=== PATIENT | female | born 1995 | race Caucasian/White ===

== ENCOUNTER 2019-04-17 08:32 | Inpatient (IN) ==
[2019-04-17] MEDS ORDERED: OXYTOCIN 30 UNITS/500 ML BAG IV PRN ×2 (09:14→09:17)
--- NOTE | 2019-04-17 09:32 | History & Physical Report ---
Date of Service April 17, 2019 Assessment & Plan (1) Carrier of group B Streptococcus: (2) Diet controlled gestational diabetes mellitus: (3) : Admit to L&D. IV access. EFM/toco. Will ambulate in halls. Suspect early labor, and given patient's gestation and GBS+ status will admit now rather than wait. Undecided about epidural. For GBS+, Penicillin ordered. For GDMA1, will check blood sugars Q 2 h If ctx do not increase to labor pattern, will likely need pitocin to augment labor. Do not suspect ROM, given negative exam. The equivocal nitrizine strip is likely from patient's report of having intercourse last night. (4) Obesity: History of Present Illness Chief Complaint: Contractions, leaking of fluid Primary Care Provider: NO PCP 23yo @ 40 09/28 presents with contractions and feeling of wetness. She reports + movement, no vaginal bleeding. complicated by GDMA1, obesity, GBS+. She had been checking blood sugars and reported them to be normal earlier in the , but now reports that she has not really been checking in the past few weeks. Allergies Allergy/AdvReac Type Severity Reaction Status Date / Time No Known Drug Allergies Allergy Unknown none Verified 04/17/19 08:52 pomegranate AdvReac Severe Nausea Verified 04/17/19 08:52 Home Medications Home Medications Medication Instructions Recorded Confirmed Type cyanocobalamin (vitamin B-12) 0 mcg PO QDL 09/07/18 04/17/19 History [Vitamin B-12] PNV cmb#95-ferrous fumarate-FA 1 tab PO QDL 11/05/18 04/17/19 History [] sertraline 25 mg tablet 50 mg PO DAILY 11/28/18 04/17/19 History Patient History Medical History (Updated 03/24/19 @ 10:04 by Pollo Knight Jr, MD, FACOG) Breast discharge Hx of migraines No pertinent past medical history Obesity (Acute) Yeast infection Surgical History (Updated 11/24/18 @ 18:54 by Clementine Rose) S/P tonsillectomy Family History (Updated 11/24/18 @ 18:56 by Clementine Rose) Father Drinking problem Hypertension Dyslipidemia Grandmother (Paternal) Kidney stones Grandmother (Maternal) Multiple gestation Other Breast cancer Social History Preferred Language: Polish Communication Ability: Effective 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 Beliefs That Will Affect Care: None marital status: Single Current Living Situation: Significant Other Current Living Situation Comment: [id number] Other Information That Helps Us Care for You: No Feels Safe at Home: Yes Safety Concerns: Feels Safe At This Time Smoking Status: Current some day smoker Tobacco Type: cigarettes ; Cigarettes Per Day: 2 ; Do You Dip or Chew Tobacco: No ; Second Hand Exposure: Yes ; Tobacco Cessation Education Requested by Patient: No Hx Alcohol Use: Yes Alcohol type: wine Hx Substance Use: No Review of Systems All systems reviewed & are unremarkable except as noted in HPI & below Physical Exam Physical Exam: FHT Cat 1 [place] Q 5 min SVE 4/80/-2 Sterile spec: mucus-like cervical discharge, negative ferning, negative pooling, negative Valsalva, equivocal nitrizine. Constitutional: WD/WN, vitals as above Respiratory: normal respiratory effort, lungs clear to auscultation no respiratory distress Cardiovascular: Rate/Rhythm: regular rate and regular rhythm Gastrointestinal (Abdomen): Inspection/Auscultation: abdomen normal to inspection Percussion/Palpation: abdomen soft; abdomen nontender Gravid. No s/s chorio or abruption. Skin: no rashes, warm and dry Psychiatric: A+Ox3, euthymic affect Results & Data Vital Signs (Past 12 Hours) Vital Signs Temp Pulse Resp BP 04/17/19 08:43 36.9 C 118 H 20 135/82
[2019-04-17 09:35] LABS: Hematocrit (blood only) 38.1 % (37-47); Hemoglobin 12.5 g/dL (12.0-16.0); Mean Corpuscular Volume 85.2 fL (80-100); Mean Platelet Volume 9.9 fL (7.4-10.4); Platelet Count 203 K/uL (130-400); RDW Standard Deviation 46.3 fL (36.4-46.3); Red Blood Count 4.47 M/uL (4.2-5.4); White Blood Count 9.11 K/uL (4.8-10.8)
[2019-04-17 09:39] LABS: Mean Corpuscular Hgb Conc 32.8 g/dL (32-36)
[2019-04-17] MEDS: LACTATED RINGER'S 1,000 ML IV PRN ×2 (09:43→21:59)
[2019-04-17] MEDS ORDERED: PENICILLIN G POTASSIUM 6 MU in DEXTROSE 5% 250 ML IV ONE (09:45)
[2019-04-17 09:52] LABS: Alanine Aminotransferase 18 U/L (12-78); Albumin Level 2.6 gm/dl (3.4-5.0); Aspartate Aminotransferase 19 U/L (15-37); BUN Creatinine Ratio 15.5 (10-20); Blood Urea Nitrogen 9 mg/dl (7-18); Calcium 9.4 mg/dl (8.5-10.1); Carbon Dioxide 25 mmol/L (21-32); Chloride 107 mmol/L (98-107); Creatinine Clr Calc Pharmacy 175.5 ml/min; Est GFR (African American) > 150.0; Est GFR (Non-African American) 131.4; Glucose 110 mg/dl (70-99); Potassium 3.8 mmol/L (3.5-5.1); Sodium 138 mmol/L (136-145)
[2019-04-17 09:55] LABS: Albumin Globulin Ratio 0.6 (0.9-2); Alkaline Phosphatase 235 U/L (45-117); Bilirubin,Total 0.3 mg/dl (0.2-1); Globulin 4.4 gm/dl (2.5-4.0)
--- NOTE | 2019-04-17 12:20 | Labor Progress Brief Note ---
Date of Service April 17, 2019 Subjective Hip pain. Has ambulated. FHT Cat 1 [place] occasional ctx Discussed with patient that I recommend that she begin pitocin to improve contraction pattern. She is agreeable. SVE /-2 She would like to use IV pain medication - stadol ordered. She is also considering epidural. Results & Data Vital Signs (Past 12 Hours) Vital Signs Temp Pulse Resp BP 04/17/19 10:48 112 H 142/90 H 04/17/19 10:47 106 H 142/98 H 04/17/19 09:49 104 H 142/88 H 04/17/19 08:56 36.9 C 118 H 20 135/82 04/17/19 08:43 36.9 C 118 H 20 135/82
[2019-04-17] MEDS: BUTORPHANOL TARTRATE 1 MG/ML VIAL IV PRN (12:38)
[2019-04-17] MEDS: ACETAMINOPHEN 500 MG TAB PO PRN (13:53)
[2019-04-17] MEDS: PENICILLIN G POTASSIUM 3 MU in DEXTROSE 5% 100 ML IV PRN ×3 (13:59→21:55)
[2019-04-17] MEDS ORDERED: fentaNYL citrate 100 MCG/2 ML VIAL ONE ×2 (14:37→23:57)
[2019-04-17] MEDS ORDERED: ePHEDrine sulfate 50 MG/ML AMP ONE (14:38)
[2019-04-17] MEDS ORDERED: fentaNYL 2MCG/ML ROPIV 1.25MG/ML 100 ML BAG EPI ONE (14:38)
[2019-04-17] MEDS ORDERED: BUPIVACAINE 0.25% 30 ML VIAL ONE ×2 (14:38→23:57)
--- NOTE | 2019-04-17 15:24 | Anesthesiology Consultation ---
Date of Service April 17, 2019 Assessment & Plan ASA ASA2 Proposed Anesthesia Anesthesia Type: Labor Epidural Risk / Benefits Reviewed With: PT / POA / Parent / Guardian, Accepts Plan and Informed Consent Obtained History Height/Weight Height: 5 ft 1 in Weight: 106.141 kg Allergies Allergy/AdvReac Type Severity Reaction Status Date / Time No Known Drug Allergies Allergy Unknown none Verified 04/17/19 08:52 pomegranate AdvReac Severe Nausea Verified 04/17/19 08:52 Medications Home Medications Medication Instructions Recorded Confirmed Last Taken cyanocobalamin (vitamin B-12) 0 mcg PO QDL 09/07/18 04/17/19 04/17/19 06:30 [Vitamin B-12] PNV cmb#95-ferrous fumarate-FA 1 tab PO QDL 11/05/18 04/17/19 04/17/19 06:30 [] sertraline 25 mg tablet 50 mg PO DAILY 11/28/18 04/17/19 04/17/19 06:30 Active Medications Generic Name Dose Route Start Last Admin Trade Name Juanq PRN Reason Stop Dose Admin Acetaminophen 1,000 mg 04/17/19 13:39 04/17/19 13:53 Tylenol PO 05/17/19 13:38 1,000 mg Q6H PRN Administration Pain Butorphanol Tartrate 1 mg 04/17/19 12:18 04/17/19 12:38 Stadol IV 05/17/19 12:17 1 mg ONCE PRN Administration Pain Lactated Ringer's 1,000 mls @ 125 mls/hr 04/17/19 09:14 04/17/19 14:50 Lr IV 04/19/19 09:13 125 mls/hr .Q8H PRN Infusion L&D Protocol Protocol Penicillin G Potassium 3 mu/ 106 mls @ 100 mls/hr 04/17/19 09:14 04/17/19 13:59 Dextrose IV 04/27/19 09:13 100 mls/hr Q4H PRN Administration Give until delivery Oxytocin 30 units in 500 mls @ 5 mls/hr 04/17/19 09:17 04/17/19 14:50 Pitocin IV 04/19/19 09:16 0.3 units/hr .Q24H PRN 5 mls/hr Labor Induction/Augmentation Titration Protocol 0.3 UNITS/HR Past Medical History Medical History Breast discharge Hx of migraines No pertinent past medical history Obesity (Acute) Yeast infection Exercise / Class Metabolic Activity II 4-5 Yardwork/Stairs/Walk up hill Past Family History Family History Father Drinking problem Hypertension Dyslipidemia Grandmother (Paternal) Kidney stones Grandmother (Maternal) Multiple gestation Other Breast cancer Past Surgical History Surgical History S/P tonsillectomy Past Anesthesia History No Hx of Anesthesia Complications and No Family Hx of Anesthesia Complications History of PONV No Hx of PONV and No Hx of Motion Sickness Social History Smoking Status: Current some day smoker tobacco type: cigarettes Smoking cigarettes per day: 2 Do You Dip or Chew Tobacco: No Hx Alcohol Use: Yes Alcohol type: wine Alcohol Intake Frequency Comment: had few drinks when she was early Hx Substance Use: No Review of Systems denies fever/cough/ colds/ chest pain/ SOB/ SAMIA Constitutional: no fever and no chills Respiratory: no cough and no dyspnea denies SAMIA Cardiovascular: no chest pain and no dyspnea on exertion Physical Exam Vital Signs Last Vital Signs Temp 36.8 C 04/17/19 15:00 Pulse 95 H 04/17/19 15:45 Resp 16 04/17/19 15:00 BP 120/72 04/17/19 15:45 Pulse Ox 98 04/17/19 15:45 ENMT Mouth: no TMJ abnormality and no dentition abnormality Thyromental Distance: > or= 3.5 Finger Breadths Mallampati Class: II Neck neck extension not limited Respiratory normal respiratory effort; no respiratory distress Auscultation: lungs clear to auscultation bilaterally Cardiovascular Rate/Rhythm: regular rate and regular rhythm Neurologic moves all extremities Psychiatric Orientation: alert and oriented x 3 Testing Laboratory Results 04/17/19 09:21 04/17/19 09:21 04/17/19 04/17/19 04/17/19 15:02 13:37 11:38 POC Glucose 99 90 98
--- NOTE | 2019-04-17 15:34 | Labor Progress Brief Note ---
Date of Service April 17, 2019 Subjective Requesting epidural. FHT Cat 1, [place] Q 2-3 min. Results & Data Vital Signs (Past 12 Hours) Vital Signs Temp Pulse Resp BP Pulse Ox 04/17/19 15:27 100 H 140/89 04/17/19 15:25 95 H 98 04/17/19 15:20 105 H 100 04/17/19 15:15 95 H 98 04/17/19 15:10 95 H 98 04/17/19 15:05 94 H 95 04/17/19 15:00 36.8 C 16 04/17/19 14:26 106 H 139/87 04/17/19 13:36 36.7 C 104 H 20 139/83 04/17/19 12:51 106 H 121/75 04/17/19 12:22 112 H 171/93 H 04/17/19 10:48 36.7 C 112 H 20 142/90 H 04/17/19 10:47 106 H 142/98 H 04/17/19 09:49 104 H 142/88 H 04/17/19 08:56 36.9 C 118 H 20 135/82 04/17/19 08:43 36.9 C 118 H 20 135/82
[2019-04-17] MEDS ORDERED: ONDANSETRON INJ 2 MG/ML 2 ML VIAL ONE (15:49)
[2019-04-17] MEDS ORDERED: DiphenhydrAMINE HCL 50 MG/ML VIAL IV PRN (15:50)
[2019-04-17] MEDS ORDERED: NALOXONE HCL 1 MG in SODIUM CHLORIDE 0.9% 1000ML 1,000 ML IV PRN (15:50)
[2019-04-17] MEDS ORDERED: ONDANSETRON INJ 2 MG/ML 2 ML VIAL IV PRN (15:50)
[2019-04-17] MEDS ORDERED: NALOXONE HCL 0.4 MG/1 ML VIAL/CARP IV PRN (15:50)
[2019-04-17] MEDS ORDERED: NALBUPHINE HCL INJ 10 MG/ML AMP IV PRN (15:50)
[2019-04-17] MEDS ORDERED: ePHEDrine sulfate 50 MG/ML AMP IV PRN (15:50)
--- NOTE | 2019-04-17 18:27 | Labor Progress Brief Note ---
Date of Service April 17, 2019 Subjective Comfortable with epidural. FHT Cat 1 [place] Q2 SVE 4-5/90/-2 with bulging membranes. AROM performed for clear blood-tinged fluid. Results & Data Vital Signs (Past 12 Hours) Vital Signs Temp Pulse Resp BP Pulse Ox 04/17/19 18:20 94 H 99 04/17/19 18:15 109 H 129/74 99 04/17/19 18:10 94 H 97 04/17/19 18:05 95 H 96 04/17/19 18:01 98 H 120/69 04/17/19 18:00 94 H 99 04/17/19 17:55 91 H 96 04/17/19 17:50 104 H 97 04/17/19 17:47 94 H 123/70 04/17/19 17:45 100 H 97 04/17/19 17:40 110 H 98 04/17/19 17:35 101 H 98 04/17/19 17:31 94 H 124/69 04/17/19 17:30 102 H 99 04/17/19 17:25 102 H 98 04/17/19 17:20 102 H 97 04/17/19 17:16 115 H 138/81 04/17/19 17:15 114 H 99 04/17/19 17:10 99 H 98 04/17/19 17:05 92 H 97 04/17/19 17:00 36.9 C 101 H 18 118/69 96 04/17/19 16:59 95 H 94 04/17/19 16:56 94 H 118/70 04/17/19 16:55 94 H 96 04/17/19 16:51 98 H 118/75 04/17/19 16:50 98 H 95 04/17/19 16:47 97 H 93 04/17/19 16:45 102 H 18 111/67 97 04/17/19 16:40 104 H 96 04/17/19 16:39 96 H 107/61 04/17/19 16:36 96 H 115/63 04/17/19 16:35 95 H 97 04/17/19 16:30 111 H 18 99 04/17/19 16:29 105 H 115/65 04/17/19 16:25 89 97 04/17/19 16:24 96 H 123/69 04/17/19 16:23 94 H 93 04/17/19 16:20 100 H 119/64 96 04/17/19 16:15 104 H 18 124/67 97 04/17/19 16:10 99 H 97 04/17/19 16:09 96 H 115/55 L 04/17/19 16:05 114 H 96 04/17/19 16:04 93 H 117/59 L 04/17/19 16:00 104 H 20 98 04/17/19 15:59 96 H 118/55 L 04/17/19 15:57 106 H 121/58 L 04/17/19 15:55 107 H 117/56 L 98 04/17/19 15:53 97 H 123/58 L 04/17/19 15:51 94 H 124/59 L 04/17/19 15:50 97 H 98 04/17/19 15:49 122/65 04/17/19 15:47 90 120/59 L 04/17/19 15:45 95 H 16 120/72 98 04/17/19 15:40 114 H 99 04/17/19 15:35 105 H 99 04/17/19 15:30 97 H 98 04/17/19 15:27 100 H 140/89 04/17/19 15:25 95 H 98 04/17/19 15:20 105 H 100 04/17/19 15:15 95 H 98 04/17/19 15:10 95 H 98 04/17/19 15:05 94 H 95 04/17/19 15:00 36.8 C 16 04/17/19 14:26 106 H 139/87 04/17/19 13:36 36.7 C 104 H 20 139/83 04/17/19 12:51 106 H 121/75 04/17/19 12:22 112 H 171/93 H 04/17/19 10:48 36.7 C 112 H 20 142/90 H 04/17/19 10:47 106 H 142/98 H 04/17/19 09:49 104 H 142/88 H 04/17/19 08:56 36.9 C 118 H 20 135/82 04/17/19 08:43 36.9 C 118 H 20 135/82
--- NOTE | 2019-04-17 20:48 | Labor Progress Brief Note ---
Date of Service April 17, 2019 Subjective Feeling ctx, but still mostly comfortable with epidural. FHT Cat 1, [place] Q 2 SVE 6/90/-2. IUPC inserted. Results & Data Vital Signs (Past 12 Hours) Vital Signs Temp Pulse Resp BP Pulse Ox 04/17/19 20:46 105 H 129/75 94 04/17/19 20:45 111 H 95 04/17/19 20:40 105 H 98 04/17/19 20:35 104 H 96 04/17/19 20:31 96 H 142/67 H 04/17/19 20:30 106 H 96 04/17/19 20:29 96 H 94 04/17/19 20:25 98 H 93 04/17/19 20:23 96 H 94 04/17/19 20:20 96 H 93 04/17/19 20:18 95 H 94 04/17/19 20:16 98 H 130/70 04/17/19 20:15 93 H 95 04/17/19 20:13 97 H 93 04/17/19 20:10 93 H 93 04/17/19 20:06 96 H 94 04/17/19 20:05 96 H 95 04/17/19 20:01 96 H 128/62 04/17/19 20:00 96 H 18 94 04/17/19 19:59 94 H 94 04/17/19 19:55 95 H 94 04/17/19 19:53 96 H 94 04/17/19 19:50 95 H 93 04/17/19 19:47 92 H 134/62 94 04/17/19 19:45 89 94 04/17/19 19:40 98 H 94 04/17/19 19:39 92 H 94 04/17/19 19:35 98 H 95 04/17/19 19:33 96 H 94 04/17/19 19:31 93 H 134/72 04/17/19 19:30 93 H 18 95 04/17/19 19:25 97 H 97 04/17/19 19:20 98 H 97 04/17/19 19:16 97 H 142/71 H 04/17/19 19:15 101 H 98 04/17/19 19:10 107 H 98 04/17/19 19:05 36.8 C 108 H 98 04/17/19 19:01 100 H 133/81 04/17/19 19:00 101 H 18 98 04/17/19 18:55 106 H 98 04/17/19 18:50 105 H 98 04/17/19 18:46 96 H 128/74 04/17/19 18:45 99 H 97 04/17/19 18:40 98 H 98 04/17/19 18:35 101 H 98 04/17/19 18:32 103 H 133/85 04/17/19 18:30 97 H 20 98 04/17/19 18:25 100 H 97 04/17/19 18:20 94 H 99 04/17/19 18:15 109 H 129/74 99 04/17/19 18:10 94 H 97 04/17/19 18:05 95 H 96 04/17/19 18:01 98 H 120/69 04/17/19 18:00 94 H 18 99 04/17/19 17:55 91 H 96 04/17/19 17:50 104 H 97 04/17/19 17:47 94 H 123/70 04/17/19 17:45 100 H 97 04/17/19 17:40 110 H 98 04/17/19 17:35 101 H 98 04/17/19 17:31 94 H 124/69 04/17/19 17:30 102 H 20 99 04/17/19 17:25 102 H 98 04/17/19 17:20 102 H 97 04/17/19 17:16 115 H 138/81 04/17/19 17:15 114 H 18 99 04/17/19 17:10 99 H 98 04/17/19 17:05 92 H 97 04/17/19 17:00 36.9 C 101 H 18 118/69 96 04/17/19 16:59 95 H 94 04/17/19 16:56 94 H 118/70 04/17/19 16:55 94 H 96 04/17/19 16:51 98 H 118/75 04/17/19 16:50 98 H 95 04/17/19 16:47 97 H 93 04/17/19 16:45 102 H 18 111/67 97 04/17/19 16:40 104 H 96 04/17/19 16:39 96 H 107/61 04/17/19 16:36 96 H 115/63 04/17/19 16:35 95 H 97 04/17/19 16:30 111 H 18 99 04/17/19 16:29 105 H 115/65 04/17/19 16:25 89 97 04/17/19 16:24 96 H 123/69 04/17/19 16:23 94 H 93 04/17/19 16:20 100 H 119/64 96 04/17/19 16:15 104 H 18 124/67 97 04/17/19 16:10 99 H 97 04/17/19 16:09 96 H 115/55 L 04/17/19 16:05 114 H 96 04/17/19 16:04 93 H 117/59 L 04/17/19 16:00 104 H 20 98 04/17/19 15:59 96 H 118/55 L 04/17/19 15:57 106 H 121/58 L 04/17/19 15:55 107 H 117/56 L 98 04/17/19 15:53 97 H 123/58 L 04/17/19 15:51 94 H 124/59 L 04/17/19 15:50 97 H 98 04/17/19 15:49 122/65 04/17/19 15:47 90 120/59 L 04/17/19 15:45 95 H 16 120/72 98 04/17/19 15:40 114 H 99 04/17/19 15:35 105 H 99 04/17/19 15:30 97 H 98 04/17/19 15:27 100 H 140/89 04/17/19 15:25 95 H 98 04/17/19 15:20 105 H 100 04/17/19 15:15 95 H 98 04/17/19 15:10 95 H 98 04/17/19 15:05 94 H 95 04/17/19 15:00 36.8 C 16 04/17/19 14:26 106 H 139/87 04/17/19 13:36 36.7 C 104 H 20 139/83 04/17/19 12:51 106 H 121/75 04/17/19 12:22 112 H 171/93 H 04/17/19 10:48 36.7 C 112 H 20 142/90 H 04/17/19 10:47 106 H 142/98 H 04/17/19 09:49 104 H 142/88 H 04/17/19 08:56 36.9 C 118 H 20 135/82
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
[2019-04-17] MEDS: fentaNYL 2MCG/ML ROPIV 1.25MG/ML 100 ML BAG EPI PRN (21:56)
--- NOTE | 2019-04-17 22:25 | Labor Progress Brief Note ---
Date of Service April 17, 2019 Subjective Feeling more discomfort in her back. FHT 130s-140s mod tami. +accels. Deceleration lasting 3 minutes to 120s. Returned to baseline with accels. Cervix exam (moved down in station, not dilating more yet). IUPC in place, [place] with Q2, adequate [place] units. Results & Data Vital Signs (Past 12 Hours) Vital Signs Temp Pulse Resp BP Pulse Ox 04/17/19 22:20 102 H 96 04/17/19 22:16 107 H 141/103 H 04/17/19 22:15 106 H 97 04/17/19 22:10 98 H 96 04/17/19 22:05 111 H 97 04/17/19 22:02 97 H 147/67 H 04/17/19 22:00 96 H 95 04/17/19 21:55 108 H 95 04/17/19 21:53 99 H 94 04/17/19 21:51 95 H 138/77 04/17/19 21:50 96 H 95 04/17/19 21:47 111 H 94 04/17/19 21:45 94 H 95 04/17/19 21:41 98 H 94 04/17/19 21:40 99 H 95 04/17/19 21:35 101 H 97 04/17/19 21:34 105 H 93 04/17/19 21:31 101 H 129/80 04/17/19 21:30 116 H 18 97 04/17/19 21:25 106 H 96 04/17/19 21:20 119 H 98 04/17/19 21:17 118 H 143/83 H 04/17/19 21:15 114 H 97 04/17/19 21:10 102 H 96 04/17/19 21:05 107 H 95 04/17/19 21:01 100 H 134/68 04/17/19 21:00 36.9 C 104 H 18 95 04/17/19 20:55 113 H 96 04/17/19 20:54 111 H 93 04/17/19 20:50 96 H 96 04/17/19 20:46 105 H 129/75 94 04/17/19 20:45 111 H 95 04/17/19 20:40 105 H 98 04/17/19 20:35 104 H 96 04/17/19 20:31 96 H 142/67 H 04/17/19 20:30 106 H 16 96 04/17/19 20:29 96 H 94 04/17/19 20:25 98 H 93 04/17/19 20:23 96 H 94 04/17/19 20:20 96 H 93 04/17/19 20:18 95 H 94 04/17/19 20:16 98 H 130/70 04/17/19 20:15 93 H 95 04/17/19 20:13 97 H 93 04/17/19 20:10 93 H 93 04/17/19 20:06 96 H 94 04/17/19 20:05 96 H 95 04/17/19 20:01 96 H 128/62 04/17/19 20:00 96 H 18 94 04/17/19 19:59 94 H 94 04/17/19 19:55 95 H 94 04/17/19 19:53 96 H 94 04/17/19 19:50 95 H 93 04/17/19 19:47 92 H 134/62 94 04/17/19 19:45 89 94 04/17/19 19:40 98 H 94 04/17/19 19:39 92 H 94 04/17/19 19:35 98 H 95 04/17/19 19:33 96 H 94 04/17/19 19:31 93 H 134/72 04/17/19 19:30 93 H 18 95 04/17/19 19:25 97 H 97 04/17/19 19:20 98 H 97 04/17/19 19:16 97 H 142/71 H 04/17/19 19:15 101 H 98 04/17/19 19:10 107 H 98 04/17/19 19:05 36.8 C 108 H 98 04/17/19 19:01 100 H 133/81 04/17/19 19:00 101 H 18 98 04/17/19 18:55 106 H 98 04/17/19 18:50 105 H 98 04/17/19 18:46 96 H 128/74 04/17/19 18:45 99 H 97 04/17/19 18:40 98 H 98 04/17/19 18:35 101 H 98 04/17/19 18:32 103 H 133/85 04/17/19 18:30 97 H 20 98 04/17/19 18:25 100 H 97 04/17/19 18:20 94 H 99 04/17/19 18:15 109 H 129/74 99 04/17/19 18:10 94 H 97 04/17/19 18:05 95 H 96 04/17/19 18:01 98 H 120/69 04/17/19 18:00 94 H 18 99 04/17/19 17:55 91 H 96 04/17/19 17:50 104 H 97 04/17/19 17:47 94 H 123/70 04/17/19 17:45 100 H 97 04/17/19 17:40 110 H 98 04/17/19 17:35 101 H 98 04/17/19 17:31 94 H 124/69 04/17/19 17:30 102 H 20 99 04/17/19 17:25 102 H 98 04/17/19 17:20 102 H 97 04/17/19 17:16 115 H 138/81 04/17/19 17:15 114 H 18 99 04/17/19 17:10 99 H 98 04/17/19 17:05 92 H 97 04/17/19 17:00 36.9 C 101 H 18 118/69 96 04/17/19 16:59 95 H 94 04/17/19 16:56 94 H 118/70 04/17/19 16:55 94 H 96 04/17/19 16:51 98 H 118/75 04/17/19 16:50 98 H 95 04/17/19 16:47 97 H 93 04/17/19 16:45 102 H 18 111/67 97 04/17/19 16:40 104 H 96 04/17/19 16:39 96 H 107/61 04/17/19 16:36 96 H 115/63 04/17/19 16:35 95 H 97 04/17/19 16:30 111 H 18 99 04/17/19 16:29 105 H 115/65 04/17/19 16:25 89 97 04/17/19 16:24 96 H 123/69 04/17/19 16:23 94 H 93 04/17/19 16:20 100 H 119/64 96 04/17/19 16:15 104 H 18 124/67 97 04/17/19 16:10 99 H 97 04/17/19 16:09 96 H 115/55 L 04/17/19 16:05 114 H 96 04/17/19 16:04 93 H 117/59 L 04/17/19 16:00 104 H 20 98 04/17/19 15:59 96 H 118/55 L 04/17/19 15:57 106 H 121/58 L 04/17/19 15:55 107 H 117/56 L 98 04/17/19 15:53 97 H 123/58 L 04/17/19 15:51 94 H 124/59 L 04/17/19 15:50 97 H 98 04/17/19 15:49 122/65 04/17/19 15:47 90 120/59 L 04/17/19 15:45 95 H 16 120/72 98 04/17/19 15:40 114 H 99 04/17/19 15:35 105 H 99 04/17/19 15:30 97 H 98 04/17/19 15:27 100 H 140/89 04/17/19 15:25 95 H 98 04/17/19 15:20 105 H 100 04/17/19 15:15 95 H 98 04/17/19 15:10 95 H 98 04/17/19 15:05 94 H 95 04/17/19 15:00 36.8 C 16 04/17/19 14:26 106 H 139/87 04/17/19 13:36 36.7 C 104 H 20 139/83 04/17/19 12:51 106 H 121/75 04/17/19 12:22 112 H 171/93 H 04/17/19 10:48 36.7 C 112 H 20 142/90 H 04/17/19 10:47 106 H 142/98 H
[2019-04-17] MEDS ORDERED: Nursing to Pharmacy Communication ONE (23:12)
--- NOTE | 2019-04-18 00:19 | Anesthesiology Progress Note ---
Date of Service April 18, 2019 Subjective The patient stated having increasing labor pains. The epidural catheter was jodi lused with 50mcg fentanyl and 3mL of 0.25% bupivacaine. The patient stated having improved labor pains after the bolus. The patient and fetus were stable throughout. Physical Exam Vital Signs: Last Vital Signs Temp 98.6 F 04/17/19 23:05 Pulse 109 H 04/18/19 00:13 Resp 20 04/17/19 23:30 BP 154/87 H 04/18/19 00:13 Pulse Ox 96 04/18/19 00:10 Results & Data Medications Administered Acetaminophen (Tylenol) 1,000 mg PO Q6H PRN PRN Reason: Pain Stop: 05/17/19 13:38 Last Admin: 04/17/19 13:53 Dose: 1,000 mg Documented by: [id number] Butorphanol Tartrate (Stadol) 1 mg IV ONCE PRN PRN Reason: Pain Stop: 05/17/19 12:17 Last Admin: 04/17/19 12:38 Dose: 1 mg Documented by: [id number] Cosigned by: [id number] Lactated Ringer's (Lr) 1,000 mls @ 125 mls/hr IV .Q8H PRN; Protocol PRN Reason: L&D Protocol Stop: 04/19/19 09:13 Last Admin: 04/17/19 21:59 Dose: 125 mls/hr Documented by: [id number] Infusion: 04/17/19 19:20 Dose: 125 mls/hr Documented by: [id number] Infusion: 04/17/19 14:50 Dose: 125 mls/hr Documented by: [id number] Infusion: 04/17/19 12:34 Dose: 125 mls/hr Documented by: [id number] Infusion: 04/17/19 10:58 Dose: 0 mls/hr Documented by: [id number] Admin: 04/17/19 09:43 Dose: 125 mls/hr Documented by: [id number] Penicillin G Potassium 3 mu/ (Dextrose) 106 mls @ 100 mls/hr IV Q4H PRN PRN Reason: Give until delivery Stop: 04/27/19 09:13 Last Admin: 04/17/19 21:55 Dose: 100 mls/hr Documented by: [id number] Infusion: 04/17/19 19:05 Dose: 0 mls/hr Documented by: [id number] Admin: 12/25/19 17:57 Dose: 100 mls/hr Documented by: [id number] Infusion: 04/17/19 15:02 Dose: 0 mls/hr Documented by: [id number] Admin: 04/17/19 13:59 Dose: 100 mls/hr Documented by: [id number] Oxytocin (Pitocin) 30 units in 500 mls @ 11 mls/hr IV .Q24H PRN; Protocol PRN Reason: Labor Induction/Augmentation Stop: 04/19/19 09:16 Last Titration: 04/17/19 18:10 Dose: 0.66 units/hr, 11 mls/hr Documented by: [id number] Titration: 04/17/19 17:35 Dose: 0.54 units/hr, 9 mls/hr Documented by: [id number] Titration: 04/17/19 17:06 Dose: 0.42 units/hr, 7 mls/hr Documented by: [id number] Titration: 04/17/19 15:00 Dose: 0.3 units/hr, 5 mls/hr Documented by: [id number] Titration: 04/17/19 14:50 Dose: 0.3 units/hr, 5 mls/hr Documented by: [id number] Titration: 04/17/19 14:30 Dose: 0.3 units/hr, 5 mls/hr Documented by: [id number] Titration: 04/17/19 13:25 Dose: 0.18 units/hr, 3 mls/hr Documented by: [id number] Admin: 04/17/19 12:36 Dose: 0.06 units/hr, 1 mls/hr Documented by: [id number] Cosigned by: [id number] Ropivacaine (Epidural (L&D)) 100 ml EPI PRN PRN; Protocol PRN Reason: Pain R/T Labor Stop: 04/18/19 15:49 Last Admin: 04/17/19 21:56 Dose: 100 ml Documented by: [id number] Cosigned by: [id number]
[2019-04-18] MEDS ORDERED: ePHEDrine sulfate 50 MG/ML AMP ONE (00:44)
[2019-04-18] MEDS ORDERED: fentaNYL citrate 100 MCG/2 ML VIAL ONE ×2 (00:44→06:26)
[2019-04-18] MEDS ORDERED: fentaNYL 2MCG/ML ROPIV 1.25MG/ML 100 ML BAG EPI ONE (00:45)
[2019-04-18] MEDS ORDERED: BUPIVACAINE 0.25% 30 ML VIAL ONE (00:45)
[2019-04-18] MEDS: BUTORPHANOL TARTRATE 1 MG/ML VIAL IV PRN (01:30)
[2019-04-18] MEDS: PENICILLIN G POTASSIUM 3 MU in DEXTROSE 5% 100 ML IV PRN (01:37)
[2019-04-18] MEDS ORDERED: DiphenhydrAMINE HCL 50 MG/ML VIAL IV STA (01:39)
--- NOTE | 2019-04-18 01:46 | Labor Progress Brief Note ---
Date of Service April 18, 2019 Subjective Patient is screaming in pain with contractions. FHT Cat 1 [place] Q 2-3 min SVE 7-8/90/0 Dr [place] anesthesia has re-dosed epidural. Will give stadol and benadryl in an attempt to help her with pain and anxiety. Results & Data Vital Signs (Past 12 Hours) Vital Signs Temp Pulse Resp BP Pulse Ox 04/18/19 01:37 129 H 138/88 04/18/19 01:35 125 H 141/88 H 96 04/18/19 01:33 122 H 142/94 H 04/18/19 01:31 131 H 154/86 H 04/18/19 01:30 134 H 97 04/18/19 01:29 139 H 153/89 H 04/18/19 01:27 133 H 157/107 H 04/18/19 01:25 140 H 175/119 H 93 04/18/19 01:20 135 H 88 L 04/18/19 01:15 118 H 95 04/18/19 01:13 132 H 84 L 04/18/19 01:10 122 H 153/96 H 96 04/18/19 01:08 112 H 160/94 H 04/18/19 01:05 122 H 96 04/18/19 01:00 116 H 96 04/18/19 00:56 127 H 149/79 H 04/18/19 00:55 132 H 95 04/18/19 00:51 136 H 83 L 04/18/19 00:50 129 H 93 04/18/19 00:45 127 H 93 04/18/19 00:44 129 H 89 L 04/18/19 00:40 116 H 145/85 H 91 04/18/19 00:35 127 H 95 04/18/19 00:31 127 H 85 L 04/18/19 00:30 36.8 C 108 H 20 93 04/18/19 00:27 106 H 203/107 H 04/18/19 00:25 115 H 94 04/18/19 00:21 109 H 200/117 H 04/18/19 00:20 108 H 95 04/18/19 00:15 111 H 167/88 H 94 04/18/19 00:13 109 H 154/87 H 04/18/19 00:11 107 H 158/93 H 04/18/19 00:10 109 H 96 04/18/19 00:09 125 H 158/94 H 04/18/19 00:07 122 H 165/96 H 04/18/19 00:05 118 H 163/93 H 95 04/18/19 00:03 108 H 155/93 H 04/18/19 00:01 110 H 147/105 H 04/18/19 00:00 109 H 20 94 04/17/19 23:55 111 H 94 04/17/19 23:53 103 H 87 L 04/17/19 23:50 103 H 93 04/17/19 23:46 114 H 146/87 H 04/17/19 23:45 111 H 96 04/17/19 23:40 111 H 97 04/17/19 23:35 110 H 96 04/17/19 23:31 116 H 138/88 04/17/19 23:30 118 H 20 97 04/17/19 23:25 110 H 96 04/17/19 23:20 113 H 97 04/17/19 23:17 99 H 153/72 H 04/17/19 23:15 100 H 94 04/17/19 23:10 112 H 95 04/17/19 23:05 37.0 C 103 H 20 94 04/17/19 23:01 98 H 144/86 H 04/17/19 23:00 99 H 94 04/17/19 22:55 108 H 96 04/17/19 22:50 107 H 96 04/17/19 22:46 102 H 139/81 04/17/19 22:45 102 H 95 04/17/19 22:40 102 H 96 04/17/19 22:35 111 H 96 04/17/19 22:31 96 H 141/80 H 04/17/19 22:30 109 H 18 95 04/17/19 22:25 115 H 95 04/17/19 22:20 102 H 96 04/17/19 22:16 107 H 141/103 H 04/17/19 22:15 106 H 97 04/17/19 22:10 98 H 96 04/17/19 22:05 111 H 97 04/17/19 22:02 97 H 147/67 H 04/17/19 22:01 18 04/17/19 22:00 96 H 95 12/25/19 21:55 108 H 95 04/17/19 21:53 99 H 94 04/17/19 21:51 95 H 138/77 04/17/19 21:50 96 H 95 04/17/19 21:47 111 H 94 04/17/19 21:45 94 H 95 04/17/19 21:41 98 H 94 04/17/19 21:40 99 H 95 04/17/19 21:35 101 H 97 04/17/19 21:34 105 H 93 04/17/19 21:31 101 H 129/80 04/17/19 21:30 116 H 18 97 04/17/19 21:25 106 H 96 04/17/19 21:20 119 H 98 04/17/19 21:17 118 H 143/83 H 04/17/19 21:15 114 H 97 04/17/19 21:10 102 H 96 04/17/19 21:05 107 H 95 04/17/19 21:01 100 H 134/68 04/17/19 21:00 36.9 C 104 H 18 95 04/17/19 20:55 113 H 96 04/17/19 20:54 111 H 93 04/17/19 20:50 96 H 96 04/17/19 20:46 105 H 129/75 94 04/17/19 20:45 111 H 95 04/17/19 20:40 105 H 98 04/17/19 20:35 104 H 96 04/17/19 20:31 96 H 142/67 H 04/17/19 20:30 106 H 16 96 04/17/19 20:29 96 H 94 04/17/19 20:25 98 H 93 04/17/19 20:23 96 H 94 04/17/19 20:20 96 H 93 04/17/19 20:18 95 H 94 04/17/19 20:16 98 H 130/70 04/17/19 20:15 93 H 95 04/17/19 20:13 97 H 93 04/17/19 20:10 93 H 93 04/17/19 20:06 96 H 94 04/17/19 20:05 96 H 95 04/17/19 20:01 96 H 128/62 04/17/19 20:00 96 H 18 94 04/17/19 19:59 94 H 94 12/25/19 19:55 95 H 94 04/17/19 19:53 96 H 94 04/17/19 19:50 95 H 93 04/17/19 19:47 92 H 134/62 94 04/17/19 19:45 89 94 04/17/19 19:40 98 H 94 04/17/19 19:39 92 H 94 04/17/19 19:35 98 H 95 04/17/19 19:33 96 H 94 04/17/19 19:31 93 H 134/72 04/17/19 19:30 93 H 18 95 04/17/19 19:25 97 H 97 04/17/19 19:20 98 H 97 04/17/19 19:16 97 H 142/71 H 04/17/19 19:15 101 H 98 04/17/19 19:10 107 H 98 04/17/19 19:05 36.8 C 108 H 98 04/17/19 19:01 100 H 133/81 04/17/19 19:00 101 H 18 98 04/17/19 18:55 106 H 98 04/17/19 18:50 105 H 98 04/17/19 18:46 96 H 128/74 04/17/19 18:45 99 H 97 04/17/19 18:40 98 H 98 04/17/19 18:35 101 H 98 04/17/19 18:32 103 H 133/85 04/17/19 18:30 97 H 20 98 04/17/19 18:25 100 H 97 04/17/19 18:20 94 H 99 04/17/19 18:15 109 H 129/74 99 04/17/19 18:10 94 H 97 04/17/19 18:05 95 H 96 04/17/19 18:01 98 H 120/69 04/17/19 18:00 94 H 18 99 04/17/19 17:55 91 H 96 04/17/19 17:50 104 H 97 04/17/19 17:47 94 H 123/70 04/17/19 17:45 100 H 97 04/17/19 17:40 110 H 98 04/17/19 17:35 101 H 98 04/17/19 17:31 94 H 124/69 04/17/19 17:30 102 H 20 99 04/17/19 17:25 102 H 98 04/17/19 17:20 102 H 97 04/17/19 17:16 115 H 138/81 04/17/19 17:15 114 H 18 99 04/17/19 17:10 99 H 98 04/17/19 17:05 92 H 97 04/17/19 17:00 36.9 C 101 H 18 118/69 96 04/17/19 16:59 95 H 94 04/17/19 16:56 94 H 118/70 04/17/19 16:55 94 H 96 04/17/19 16:51 98 H 118/75 04/17/19 16:50 98 H 95 04/17/19 16:47 97 H 93 04/17/19 16:45 102 H 18 111/67 97 04/17/19 16:40 104 H 96 04/17/19 16:39 96 H 107/61 04/17/19 16:36 96 H 115/63 04/17/19 16:35 95 H 97 04/17/19 16:30 111 H 18 99 04/17/19 16:29 105 H 115/65 04/17/19 16:25 89 97 04/17/19 16:24 96 H 123/69 04/17/19 16:23 94 H 93 04/17/19 16:20 100 H 119/64 96 04/17/19 16:15 104 H 18 124/67 97 04/17/19 16:10 99 H 97 04/17/19 16:09 96 H 115/55 L 04/17/19 16:05 114 H 96 04/17/19 16:04 93 H 117/59 L 04/17/19 16:00 104 H 20 98 04/17/19 15:59 96 H 118/55 L 04/17/19 15:57 106 H 121/58 L 04/17/19 15:55 107 H 117/56 L 98 04/17/19 15:53 97 H 123/58 L 04/17/19 15:51 94 H 124/59 L 04/17/19 15:50 97 H 98 04/17/19 15:49 122/65 04/17/19 15:47 90 120/59 L 04/17/19 15:45 95 H 16 120/72 98 04/17/19 15:40 114 H 99 04/17/19 15:35 105 H 99 04/17/19 15:30 97 H 98 04/17/19 15:27 100 H 140/89 04/17/19 15:25 95 H 98 04/17/19 15:20 105 H 100 04/17/19 15:15 95 H 98 04/17/19 15:10 95 H 98 04/17/19 15:05 94 H 95 04/17/19 15:00 36.8 C 16 04/17/19 14:26 106 H 139/87
--- NOTE | 2019-04-18 02:22 | Labor Progress Brief Note ---
Date of Service April 18, 2019 Subjective Patient continues to scream through contractions, stating she needs the pain to stop right now. Gave patient the option of section under general anesthesia, vs Dr [place] to try an intrathecal epidural. She would like to try intrathecal, as recovery from would be very difficult. She is aware this could result in spinal headache. Results & Data Vital Signs (Past 12 Hours) Vital Signs Temp Pulse Resp BP Pulse Ox 04/18/19 02:15 153 H 98 04/18/19 02:10 148 H 95 04/18/19 02:05 141 H 95 04/18/19 02:00 145 H 95 04/18/19 01:55 140 H 94 04/18/19 01:53 146 H 138/72 04/18/19 01:51 150 H 85 L 04/18/19 01:50 163 H 93 04/18/19 01:45 144 H 94 04/18/19 01:40 135 H 95 04/18/19 01:37 129 H 138/88 04/18/19 01:35 125 H 141/88 H 96 04/18/19 01:33 122 H 142/94 H 04/18/19 01:31 131 H 154/86 H 04/18/19 01:30 134 H 97 04/18/19 01:29 139 H 153/89 H 04/18/19 01:27 133 H 157/107 H 04/18/19 01:25 140 H 175/119 H 93 04/18/19 01:20 135 H 88 L 04/18/19 01:15 118 H 95 04/18/19 01:13 132 H 84 L 04/18/19 01:10 122 H 153/96 H 96 04/18/19 01:08 112 H 160/94 H 04/18/19 01:05 122 H 96 04/18/19 01:00 116 H 96 04/18/19 00:56 127 H 149/79 H 04/18/19 00:55 132 H 95 04/18/19 00:51 136 H 83 L 04/18/19 00:50 129 H 93 04/18/19 00:45 127 H 93 04/18/19 00:44 129 H 89 L 04/18/19 00:40 116 H 145/85 H 91 04/18/19 00:35 127 H 95 04/18/19 00:31 127 H 85 L 04/18/19 00:30 36.8 C 108 H 20 93 04/18/19 00:27 106 H 203/107 H 04/18/19 00:25 115 H 94 04/18/19 00:21 109 H 200/117 H 04/18/19 00:20 108 H 95 04/18/19 00:15 111 H 167/88 H 94 04/18/19 00:13 109 H 154/87 H 04/18/19 00:11 107 H 158/93 H 04/18/19 00:10 109 H 96 04/18/19 00:09 125 H 158/94 H 04/18/19 00:07 122 H 165/96 H 04/18/19 00:05 118 H 163/93 H 95 04/18/19 00:03 108 H 155/93 H 04/18/19 00:01 110 H 147/105 H 04/18/19 00:00 109 H 20 94 04/17/19 23:55 111 H 94 04/17/19 23:53 103 H 87 L 04/17/19 23:50 103 H 93 04/17/19 23:46 114 H 146/87 H 04/17/19 23:45 111 H 96 04/17/19 23:40 111 H 97 04/17/19 23:35 110 H 96 04/17/19 23:31 116 H 138/88 04/17/19 23:30 118 H 20 97 04/17/19 23:25 110 H 96 04/17/19 23:20 113 H 97 04/17/19 23:17 99 H 153/72 H 04/17/19 23:15 100 H 94 04/17/19 23:10 112 H 95 04/17/19 23:05 37.0 C 103 H 20 94 04/17/19 23:01 98 H 144/86 H 04/17/19 23:00 99 H 94 04/17/19 22:55 108 H 96 04/17/19 22:50 107 H 96 04/17/19 22:46 102 H 139/81 04/17/19 22:45 102 H 95 04/17/19 22:40 102 H 96 04/17/19 22:35 111 H 96 04/17/19 22:31 96 H 141/80 H 04/17/19 22:30 109 H 18 95 04/17/19 22:25 115 H 95 04/17/19 22:20 102 H 96 04/17/19 22:16 107 H 141/103 H 04/17/19 22:15 106 H 97 04/17/19 22:10 98 H 96 04/17/19 22:05 111 H 97 04/17/19 22:02 97 H 147/67 H 04/17/19 22:01 18 04/17/19 22:00 96 H 95 04/17/19 21:55 108 H 95 04/17/19 21:53 99 H 94 04/17/19 21:51 95 H 138/77 04/17/19 21:50 96 H 95 04/17/19 21:47 111 H 94 04/17/19 21:45 94 H 95 04/17/19 21:41 98 H 94 04/17/19 21:40 99 H 95 04/17/19 21:35 101 H 97 04/17/19 21:34 105 H 93 04/17/19 21:31 101 H 129/80 04/17/19 21:30 116 H 18 97 04/17/19 21:25 106 H 96 04/17/19 21:20 119 H 98 04/17/19 21:17 118 H 143/83 H 04/17/19 21:15 114 H 97 04/17/19 21:10 102 H 96 04/17/19 21:05 107 H 95 04/17/19 21:01 100 H 134/68 04/17/19 21:00 36.9 C 104 H 18 95 04/17/19 20:55 113 H 96 04/17/19 20:54 111 H 93 04/17/19 20:50 96 H 96 04/17/19 20:46 105 H 129/75 94 04/17/19 20:45 111 H 95 04/17/19 20:40 105 H 98 04/17/19 20:35 104 H 96 04/17/19 20:31 96 H 142/67 H 04/17/19 20:30 106 H 16 96 04/17/19 20:29 96 H 94 04/17/19 20:25 98 H 93 04/17/19 20:23 96 H 94 04/17/19 20:20 96 H 93 04/17/19 20:18 95 H 94 04/17/19 20:16 98 H 130/70 04/17/19 20:15 93 H 95 04/17/19 20:13 97 H 93 04/17/19 20:10 93 H 93 04/17/19 20:06 96 H 94 04/17/19 20:05 96 H 95 04/17/19 20:01 96 H 128/62 04/17/19 20:00 96 H 18 94 04/17/19 19:59 94 H 94 04/17/19 19:55 95 H 94 04/17/19 19:53 96 H 94 04/17/19 19:50 95 H 93 04/17/19 19:47 92 H 134/62 94 04/17/19 19:45 89 94 04/17/19 19:40 98 H 94 04/17/19 19:39 92 H 94 04/17/19 19:35 98 H 95 04/17/19 19:33 96 H 94 04/17/19 19:31 93 H 134/72 04/17/19 19:30 93 H 18 95 04/17/19 19:25 97 H 97 04/17/19 19:20 98 H 97 04/17/19 19:16 97 H 142/71 H 04/17/19 19:15 101 H 98 04/17/19 19:10 107 H 98 04/17/19 19:05 36.8 C 108 H 98 04/17/19 19:01 100 H 133/81 04/17/19 19:00 101 H 18 98 04/17/19 18:55 106 H 98 04/17/19 18:50 105 H 98 04/17/19 18:46 96 H 128/74 04/17/19 18:45 99 H 97 04/17/19 18:40 98 H 98 04/17/19 18:35 101 H 98 04/17/19 18:32 103 H 133/85 04/17/19 18:30 97 H 20 98 04/17/19 18:25 100 H 97 04/17/19 18:20 94 H 99 04/17/19 18:15 109 H 129/74 99 04/17/19 18:10 94 H 97 04/17/19 18:05 95 H 96 04/17/19 18:01 98 H 120/69 04/17/19 18:00 94 H 18 99 04/17/19 17:55 91 H 96 04/17/19 17:50 104 H 97 04/17/19 17:47 94 H 123/70 04/17/19 17:45 100 H 97 04/17/19 17:40 110 H 98 04/17/19 17:35 101 H 98 04/17/19 17:31 94 H 124/69 04/17/19 17:30 102 H 20 99 04/17/19 17:25 102 H 98 04/17/19 17:20 102 H 97 04/17/19 17:16 115 H 138/81 04/17/19 17:15 114 H 18 99 04/17/19 17:10 99 H 98 04/17/19 17:05 92 H 97 04/17/19 17:00 36.9 C 101 H 18 118/69 96 04/17/19 16:59 95 H 94 04/17/19 16:56 94 H 118/70 04/17/19 16:55 94 H 96 04/17/19 16:51 98 H 118/75 04/17/19 16:50 98 H 95 04/17/19 16:47 97 H 93 04/17/19 16:45 102 H 18 111/67 97 04/17/19 16:40 104 H 96 04/17/19 16:39 96 H 107/61 04/17/19 16:36 96 H 115/63 04/17/19 16:35 95 H 97 04/17/19 16:30 111 H 18 99 04/17/19 16:29 105 H 115/65 04/17/19 16:25 89 97 04/17/19 16:24 96 H 123/69 04/17/19 16:23 94 H 93 04/17/19 16:20 100 H 119/64 96 04/17/19 16:15 104 H 18 124/67 97 04/17/19 16:10 99 H 97 04/17/19 16:09 96 H 115/55 L 04/17/19 16:05 114 H 96 04/17/19 16:04 93 H 117/59 L 04/17/19 16:00 104 H 20 98 04/17/19 15:59 96 H 118/55 L 04/17/19 15:57 106 H 121/58 L 04/17/19 15:55 107 H 117/56 L 98 04/17/19 15:53 97 H 123/58 L 04/17/19 15:51 94 H 124/59 L 04/17/19 15:50 97 H 98 04/17/19 15:49 122/65 04/17/19 15:47 90 120/59 L 04/17/19 15:45 95 H 16 120/72 98 04/17/19 15:40 114 H 99 04/17/19 15:35 105 H 99 04/17/19 15:30 97 H 98 04/17/19 15:27 100 H 140/89 04/17/19 15:25 95 H 98 04/17/19 15:20 105 H 100 04/17/19 15:15 95 H 98 04/17/19 15:10 95 H 98 04/17/19 15:05 94 H 95 04/17/19 15:00 36.8 C 16 04/17/19 14:26 106 H 139/87
[2019-04-18] MEDS ORDERED: fentaNYL 2MCG/ML ROPIV 1.25MG/ML 100 ML BAG EPI PRN (02:33)
[2019-04-18] MEDS ORDERED: ePHEDrine sulfate 50 MG/ML AMP IV PRN ×2 (02:33→06:50)
[2019-04-18] MEDS ORDERED: NALOXONE HCL 0.4 MG/1 ML VIAL/CARP IV PRN ×2 (02:33→06:50)
[2019-04-18] MEDS ORDERED: NALBUPHINE HCL INJ 10 MG/ML AMP IV PRN ×2 (02:33→06:50)
[2019-04-18] MEDS ORDERED: NALOXONE HCL 1 MG in SODIUM CHLORIDE 0.9% 1000ML 1,000 ML IV PRN ×2 (02:33→06:50)
[2019-04-18] MEDS ORDERED: ONDANSETRON INJ 2 MG/ML 2 ML VIAL IV PRN ×3 (02:33→07:26)
[2019-04-18] MEDS ORDERED: DiphenhydrAMINE HCL 50 MG/ML VIAL IV PRN ×2 (02:33→06:50)
[2019-04-18] MEDS: fentaNYL 2MCG/ML ROPIV 1.25MG/ML 100 ML BAG EPI PRN (02:41)
--- NOTE | 2019-04-18 03:06 | Anesthesiology Progress Note ---
Date of Service April 18, 2019 Subjective The patient continued to have labor pain despite placing a new epidural and re ceiving IV stadol and benadryl. I spoke with Dr. Magana, the patient, and the patients . We were in agreement to use an intrathecal catheter for her labor pain. I spoke to the patient and her about the high likelihood of having a postdural puncture headache. The patient and her were counseled about conservative therapy (hydration, caffeine, NSAIDs) vs. epidural blood patch if the patient did have a postdural puncture headache. After placement of the intrathecal catheter, the patients pain was much better controlled. The patients blood pressure was stable throughout the procedure. The heart tones were also stable. The patient stated having some cramping in her R leg with contractions but she stated having no pain otherwise. Physical Exam Vital Signs: Last Vital Signs Temp 98.2 F 04/18/19 00:30 Pulse 122 H 04/18/19 02:53 Resp 20 04/18/19 00:30 BP 182/110 H 04/18/19 02:53 Pulse Ox 100 04/18/19 02:51 Results & Data Medications Administered Acetaminophen (Tylenol) 1,000 mg PO Q6H PRN PRN Reason: Pain Stop: 05/17/19 13:38 Last Admin: 04/17/19 13:53 Dose: 1,000 mg Documented by: [id number] Butorphanol Tartrate (Stadol) 1 mg IV ONCE PRN PRN Reason: Pain Stop: 05/17/19 12:17 Last Admin: 04/18/19 01:30 Dose: 1 mg Documented by: [id number] Cosigned by: [id number] Admin: 04/17/19 12:38 Dose: 1 mg Documented by: [id number] Cosigned by: [id number] Lactated Ringer's (Lr) 1,000 mls @ 125 mls/hr IV .Q8H PRN; Protocol PRN Reason: L&D Protocol Stop: 04/19/19 09:13 Last Admin: 04/17/19 21:59 Dose: 125 mls/hr Documented by: [id number] Infusion: 04/17/19 19:20 Dose: 125 mls/hr Documented by: [id number] Infusion: 04/17/19 14:50 Dose: 125 mls/hr Documented by: [id number] Infusion: 04/17/19 12:34 Dose: 125 mls/hr Documented by: [id number] Infusion: 04/17/19 10:58 Dose: 0 mls/hr Documented by: [id number] Admin: 04/17/19 09:43 Dose: 125 mls/hr Documented by: [id number] Penicillin G Potassium 3 mu/ (Dextrose) 106 mls @ 100 mls/hr IV Q4H PRN PRN Reason: Give until delivery Stop: 04/27/19 09:13 Last Admin: 04/18/19 01:37 Dose: 100 mls/hr Documented by: [id number] Infusion: 04/17/19 22:59 Dose: 100 mls/hr Documented by: [id number] Admin: 04/17/19 21:55 Dose: 100 mls/hr Documented by: [id number] Infusion: 04/17/19 19:05 Dose: 0 mls/hr Documented by: [id number] Admin: 04/17/19 17:57 Dose: 100 mls/hr Documented by: [id number] Infusion: 04/17/19 15:02 Dose: 0 mls/hr Documented by: [id number] Admin: 04/17/19 13:59 Dose: 100 mls/hr Documented by: [id number] Oxytocin (Pitocin) 30 units in 500 mls @ 11 mls/hr IV .Q24H PRN; Protocol PRN Reason: Labor Induction/Augmentation Stop: 04/19/19 09:16 Last Titration: 04/17/19 18:10 Dose: 0.66 units/hr, 11 mls/hr Documented by: [id number] Titration: 04/17/19 17:35 Dose: 0.54 units/hr, 9 mls/hr Documented by: [id number] Titration: 04/17/19 17:06 Dose: 0.42 units/hr, 7 mls/hr Documented by: [id number] Titration: 04/17/19 15:00 Dose: 0.3 units/hr, 5 mls/hr Documented by: [id number] Titration: 04/17/19 14:50 Dose: 0.3 units/hr, 5 mls/hr Documented by: [id number] Titration: 04/17/19 14:30 Dose: 0.3 units/hr, 5 mls/hr Documented by: [id number] Titration: 04/17/19 13:25 Dose: 0.18 units/hr, 3 mls/hr Documented by: [id number] Admin: 04/17/19 12:36 Dose: 0.06 units/hr, 1 mls/hr Documented by: [id number] Cosigned by: [id number] Ondansetron HCl (Zofran) 4 mg IV Q6H PRN PRN Reason: Nausea And Vomiting Stop: 04/18/19 15:49 Last Admin: 04/18/19 01:34 Dose: 4 mg Documented by: [id number] Ropivacaine (Epidural (L&D)) 100 ml EPI PRN PRN; Protocol PRN Reason: Pain R/T Labor Stop: 04/18/19 15:49 Last Admin: 04/18/19 02:41 Dose: 2 ml Documented by: [id number] Cosigned by: [id number] Admin: 04/17/19 21:56 Dose: 100 ml Documented by: [id number] Cosigned by: [id number]
[2019-04-18] MEDS ORDERED: CITRIC ACID/SODIUM CITRATE 15 ML UDC ONE (05:40)
--- NOTE | 2019-04-18 05:54 | Labor Progress Brief Note ---
Date of Service April 18, 2019 Subjective Patient had brief relief of pain with intrathecal epidural, but this is no longer helping. She continues to scream through contractions. She is requesting oxygen mask because she feels like she is not able to breathe without it, although O2 saturations are normal. She is requesting to get the baby out right now because she cannot handle the pain anymore. Cervix exam remains 8/90/0, virtually unchanged from last exam. I also suspect that she may have failure to dilate if we continue to labor, given her minimal cervical change. She reiterates that she cannot continue labor and would like to pursue . Informed consent discussed and signed. Questions answered. Ancef 3g ordered. I have called a second surgeon to come as assist due to BMI and concerns that she may need general anesthesia if pain not controlled. Results & Data Vital Signs (Past 12 Hours) Vital Signs Temp Pulse Resp BP Pulse Ox 04/18/19 05:46 140 H 100 04/18/19 05:41 129 H 132/71 98 04/18/19 05:36 122 H 96 04/18/19 05:31 124 H 96 04/18/19 05:29 20 04/18/19 05:26 139 H 125/71 99 04/18/19 05:21 143 H 100 04/18/19 05:16 132 H 99 04/18/19 05:11 141 H 99 04/18/19 05:06 140 H 100 04/18/19 05:01 107 H 95 04/18/19 04:56 109 H 148/76 H 96 04/18/19 04:51 107 H 96 04/18/19 04:46 126 H 97 04/18/19 04:43 109 H 147/91 H 04/18/19 04:41 117 H 99 04/18/19 04:36 110 H 99 04/18/19 04:31 115 H 99 04/18/19 04:26 107 H 143/92 H 98 04/18/19 04:21 117 H 100 04/18/19 04:16 113 H 100 04/18/19 04:11 97 H 142/72 H 100 04/18/19 04:06 105 H 100 04/18/19 04:01 120 H 100 04/18/19 04:00 20 04/18/19 03:56 116 H 178/128 H 100 04/18/19 03:51 122 H 100 04/18/19 03:49 123 H 185/126 H 04/18/19 03:46 125 H 100 04/18/19 03:41 119 H 100 04/18/19 03:36 116 H 100 04/18/19 03:35 36.5 C 04/18/19 03:31 115 H 100 04/18/19 03:27 112 H 143/98 H 04/18/19 03:26 116 H 18 100 04/18/19 03:21 121 H 100 04/18/19 03:16 119 H 100 04/18/19 03:11 119 H 100 04/18/19 03:06 121 H 100 04/18/19 03:03 123 H 185/112 H 04/18/19 03:01 114 H 183/105 H 100 04/18/19 02:59 121 H 213/132 H 04/18/19 02:56 121 H 100 04/18/19 02:53 122 H 182/110 H 04/18/19 02:51 131 H 100 04/18/19 02:46 129 H 100 04/18/19 02:45 20 04/18/19 02:43 120 H 127/68 04/18/19 02:41 121 H 137/74 100 04/18/19 02:40 20 04/18/19 02:39 130 H 167/79 H 04/18/19 02:37 122 H 167/55 H 04/18/19 02:36 122 H 100 04/18/19 02:35 36.9 C 127 H 20 171/71 H 04/18/19 02:33 127 H 134/59 L 04/18/19 02:31 133 H 144/65 H 100 04/18/19 02:30 20 04/18/19 02:27 136 H 155/67 H 04/18/19 02:26 133 H 152/113 H 100 04/18/19 02:22 136 H 177/112 H 04/18/19 02:15 153 H 98 04/18/19 02:10 148 H 95 04/18/19 02:05 141 H 95 04/18/19 02:00 145 H 22 95 04/18/19 01:55 140 H 94 04/18/19 01:53 146 H 138/72 04/18/19 01:51 150 H 85 L 04/18/19 01:50 163 H 93 04/18/19 01:45 144 H 94 04/18/19 01:40 135 H 95 04/18/19 01:37 129 H 138/88 04/18/19 01:35 125 H 141/88 H 96 04/18/19 01:33 122 H 142/94 H 04/18/19 01:31 131 H 154/86 H 04/18/19 01:30 134 H 97 04/18/19 01:29 139 H 153/89 H 04/18/19 01:27 133 H 157/107 H 04/18/19 01:25 140 H 175/119 H 93 04/18/19 01:20 135 H 88 L 04/18/19 01:15 118 H 95 04/18/19 01:13 132 H 84 L 04/18/19 01:10 122 H 153/96 H 96 04/18/19 01:08 112 H 160/94 H 04/18/19 01:05 122 H 96 04/18/19 01:00 116 H 96 04/18/19 00:56 127 H 149/79 H 04/18/19 00:55 132 H 95 04/18/19 00:52 22 04/18/19 00:51 136 H 83 L 04/18/19 00:50 129 H 93 04/18/19 00:45 127 H 93 04/18/19 00:44 129 H 89 L 04/18/19 00:40 116 H 145/85 H 91 04/18/19 00:35 127 H 95 04/18/19 00:31 127 H 85 L 04/18/19 00:30 36.8 C 108 H 20 93 04/18/19 00:27 106 H 203/107 H 04/18/19 00:25 115 H 94 04/18/19 00:21 109 H 200/117 H 04/18/19 00:20 108 H 95 04/18/19 00:15 111 H 167/88 H 94 04/18/19 00:13 109 H 154/87 H 04/18/19 00:11 107 H 158/93 H 04/18/19 00:10 109 H 96 04/18/19 00:09 125 H 158/94 H 04/18/19 00:07 122 H 165/96 H 04/18/19 00:05 118 H 163/93 H 95 04/18/19 00:03 108 H 155/93 H 04/18/19 00:01 110 H 147/105 H 04/18/19 00:00 109 H 20 94 04/17/19 23:55 111 H 94 04/17/19 23:53 103 H 87 L 04/17/19 23:50 103 H 93 04/17/19 23:46 114 H 146/87 H 04/17/19 23:45 111 H 96 04/17/19 23:40 111 H 97 04/17/19 23:35 110 H 96 04/17/19 23:31 116 H 138/88 04/17/19 23:30 118 H 20 97 04/17/19 23:25 110 H 96 04/17/19 23:20 113 H 97 04/17/19 23:17 99 H 153/72 H 04/17/19 23:15 100 H 94 04/17/19 23:10 112 H 95 04/17/19 23:05 37.0 C 103 H 20 94 04/17/19 23:01 98 H 144/86 H 04/17/19 23:00 99 H 94 04/17/19 22:55 108 H 96 04/17/19 22:50 107 H 96 04/17/19 22:46 102 H 139/81 04/17/19 22:45 102 H 95 04/17/19 22:40 102 H 96 04/17/19 22:35 111 H 96 04/17/19 22:31 96 H 141/80 H 04/17/19 22:30 109 H 18 95 04/17/19 22:25 115 H 95 04/17/19 22:20 102 H 96 04/17/19 22:16 107 H 141/103 H 04/17/19 22:15 106 H 97 04/17/19 22:10 98 H 96 04/17/19 22:05 111 H 97 04/17/19 22:02 97 H 147/67 H 04/17/19 22:01 18 04/17/19 22:00 96 H 95 04/17/19 21:55 108 H 95 04/17/19 21:53 99 H 94 04/17/19 21:51 95 H 138/77 12/25/19 21:50 96 H 95 04/17/19 21:47 111 H 94 04/17/19 21:45 94 H 95 04/17/19 21:41 98 H 94 04/17/19 21:40 99 H 95 04/17/19 21:35 101 H 97 04/17/19 21:34 105 H 93 04/17/19 21:31 101 H 129/80 04/17/19 21:30 116 H 18 97 04/17/19 21:25 106 H 96 04/17/19 21:20 119 H 98 04/17/19 21:17 118 H 143/83 H 04/17/19 21:15 114 H 97 04/17/19 21:10 102 H 96 04/17/19 21:05 107 H 95 04/17/19 21:01 100 H 134/68 04/17/19 21:00 36.9 C 104 H 18 95 04/17/19 20:55 113 H 96 04/17/19 20:54 111 H 93 04/17/19 20:50 96 H 96 04/17/19 20:46 105 H 129/75 94 04/17/19 20:45 111 H 95 04/17/19 20:40 105 H 98 04/17/19 20:35 104 H 96 04/17/19 20:31 96 H 142/67 H 04/17/19 20:30 106 H 16 96 04/17/19 20:29 96 H 94 04/17/19 20:25 98 H 93 04/17/19 20:23 96 H 94 04/17/19 20:20 96 H 93 04/17/19 20:18 95 H 94 04/17/19 20:16 98 H 130/70 04/17/19 20:15 93 H 95 04/17/19 20:13 97 H 93 04/17/19 20:10 93 H 93 04/17/19 20:06 96 H 94 04/17/19 20:05 96 H 95 04/17/19 20:01 96 H 128/62 04/17/19 20:00 96 H 18 94 04/17/19 19:59 94 H 94 04/17/19 19:55 95 H 94 04/17/19 19:53 96 H 94 04/17/19 19:50 95 H 93 04/17/19 19:47 92 H 134/62 94 12/25/19 19:45 89 94 04/17/19 19:40 98 H 94 04/17/19 19:39 92 H 94 04/17/19 19:35 98 H 95 04/17/19 19:33 96 H 94 04/17/19 19:31 93 H 134/72 04/17/19 19:30 93 H 18 95 04/17/19 19:25 97 H 97 04/17/19 19:20 98 H 97 04/17/19 19:16 97 H 142/71 H 04/17/19 19:15 101 H 98 04/17/19 19:10 107 H 98 04/17/19 19:05 36.8 C 108 H 98 04/17/19 19:01 100 H 133/81 04/17/19 19:00 101 H 18 98 04/17/19 18:55 106 H 98 04/17/19 18:50 105 H 98 04/17/19 18:46 96 H 128/74 04/17/19 18:45 99 H 97 04/17/19 18:40 98 H 98 04/17/19 18:35 101 H 98 04/17/19 18:32 103 H 133/85 04/17/19 18:30 97 H 20 98 04/17/19 18:25 100 H 97 04/17/19 18:20 94 H 99 04/17/19 18:15 109 H 129/74 99 04/17/19 18:10 94 H 97 04/17/19 18:05 95 H 96 04/17/19 18:01 98 H 120/69 04/17/19 18:00 94 H 18 99 04/17/19 17:55 91 H 96
[2019-04-18] MEDS ORDERED: CEFAZOLIN 3000MG 65 ML IV SCH (06:00)
[2019-04-18] MEDS ORDERED: MoRPHine SULFATE PF 1 MG/ML 10 ML AMP/VIAL ONE (06:26)
[2019-04-18] MEDS ORDERED: OXYTOCIN 10 UNITS/ML VIAL ONE (06:34)
[2019-04-18] MEDS ORDERED: BUPIVACAINE/DEXTROSE 0.75%-8.25% 2 ML AMP IT ONE (06:34)
[2019-04-18] MEDS ORDERED: CARBOPROST TROMETHAMINE 250 MCG/ML AMPUL ONE (06:35)
[2019-04-18] MEDS ORDERED: ONDANSETRON INJ 2 MG/ML 2 ML VIAL ONE (06:41)
[2019-04-18] MEDS ORDERED: MoRPHine SULFATE PF 1 MG/ML 10 ML AMP/VIAL INT SPINAL ONE (06:50)
[2019-04-18] MEDS ORDERED: LACTATED RINGER'S 500 ML IV PRN (06:50)
[2019-04-18] MEDS ORDERED: NALOXONE HCL 0.08 MG in SYRINGE 1.8 ML IV PRN (06:50)
[2019-04-18] MEDS ORDERED: DC INTRASPINAL MORPHINE SCH (07:00)
[2019-04-18] MEDS ORDERED: SODIUM CHLORIDE 0.9% 1000ML 1,000 ML IV SCH (07:00)
[2019-04-18] MEDS ORDERED: NO NARCOTICS OR SEDATIVES SCH (07:00)
[2019-04-18] MEDS ORDERED: MAGNESIUM HYDROXIDE SUSP 30 ML UDC PO PRN (07:26)
[2019-04-18] MEDS ORDERED: BENZOCAINE 20% AER SPR 82.5 GM CAN EXT PRN (07:26)
[2019-04-18] MEDS ORDERED: SUPERCREAM 0.870% 15 GM JAR EXT PRN (07:26)
[2019-04-18] MEDS ORDERED: HYDROCORTISONE ACETATE 25 MG SUPP PR PRN (07:26)
[2019-04-18] MEDS ORDERED: PROMETHAZINE HCL 25 MG in SODIUM CHLORIDE 0.9% 50 ML IV PRN (07:26)
[2019-04-18] MEDS ORDERED: DIPHTHERIA/TETANUS/PERTUSSIS 0.5 ML SYR/VIAL IM ONE (07:26)
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
[2019-04-18 07:42] LABS: Base Excess Cord Venous Blood -1.2 mEq/L (-7.7-1.9); Cord Venous Blood HCO3 24 mmol/L (18.4-26.8); Cord Venous Blood PCO2 41 mmHg (30.4-57.2); Cord Venous Blood PO2 38 mmHg (14.1-43.3); Cord Venous Blood pH 7.38 (7.20-7.44)
[2019-04-18 07:46] LABS: Base Excess Cord Arterial Bld -5.8 mEq/L (-9-1.8); CO2 Cord Arterial Blood 47 mmHg (39.1-73.5); HCO3 Cord Arterial Blood 21 mmol/L (19.7-28.5); pH Cord Arterial Blood 7.28 (7.1-7.38)
[2019-04-18 07:47] LABS: Oxygen Sat Cord Arterial Blood < 60.0 % (<60)
[2019-04-18] MEDS ORDERED: CARBOPROST TROMETHAMINE 250 MCG/ML AMPUL IM ONE (08:16)
--- NOTE | 2019-04-18 08:16 | Anesthesiology Progress Note ---
Date of Service April 18, 2019 Anesthesia Post Procedure Vital Signs Vital Signs: Temp Pulse Resp BP Pulse Ox 04/18/19 08:10 112 H 97 04/18/19 08:06 108 H 126/75 04/18/19 08:05 114 H 96 04/18/19 08:00 114 H 98 04/18/19 07:56 115 H 130/71 04/18/19 07:55 114 H 98 04/18/19 07:52 107 H 93 04/18/19 07:50 105 H 98 04/18/19 07:46 110 H 125/73 04/18/19 07:45 103 H 98 04/18/19 07:40 106 H 98 04/18/19 07:36 113 H 124/72 04/18/19 07:35 107 H 97 04/18/19 07:30 105 H 94 04/18/19 07:26 102 H 121/69 04/18/19 07:25 108 H 95 04/18/19 07:20 98.4 F 107 H 18 98 04/18/19 07:16 112 H 126/78 04/18/19 07:15 115 H 97 04/18/19 06:01 132 H 98 04/18/19 05:56 126 H 96 04/18/19 05:51 138 H 97 04/18/19 05:46 140 H 100 04/18/19 05:41 129 H 132/71 98 04/18/19 05:36 122 H 96 04/18/19 05:31 124 H 96 04/18/19 05:29 20 04/18/19 05:26 139 H 125/71 99 04/18/19 05:21 143 H 100 04/18/19 05:16 132 H 99 04/18/19 05:11 141 H 99 04/18/19 05:06 140 H 100 04/18/19 05:01 107 H 95 04/18/19 04:56 109 H 148/76 H 96 04/18/19 04:51 107 H 96 04/18/19 04:46 126 H 97 04/18/19 04:43 109 H 147/91 H 04/18/19 04:41 117 H 99 04/18/19 04:36 110 H 99 04/18/19 04:31 115 H 99 04/18/19 04:26 107 H 143/92 H 98 04/18/19 04:21 117 H 100 04/18/19 04:16 113 H 100 04/18/19 04:11 97 H 142/72 H 100 04/18/19 04:06 105 H 100 04/18/19 04:01 120 H 100 04/18/19 04:00 20 04/18/19 03:56 116 H 178/128 H 100 04/18/19 03:51 122 H 100 04/18/19 03:49 123 H 185/126 H 04/18/19 03:46 125 H 100 04/18/19 03:41 119 H 100 04/18/19 03:36 116 H 100 04/18/19 03:35 97.7 F 04/18/19 03:31 115 H 100 04/18/19 03:27 112 H 143/98 H 04/18/19 03:26 116 H 18 100 04/18/19 03:21 121 H 100 04/18/19 03:16 119 H 100 04/18/19 03:11 119 H 100 04/18/19 03:06 121 H 100 04/18/19 03:03 123 H 185/112 H 04/18/19 03:01 114 H 183/105 H 100 04/18/19 02:59 121 H 213/132 H 04/18/19 02:56 121 H 100 04/18/19 02:53 122 H 182/110 H 04/18/19 02:51 131 H 100 04/18/19 02:46 129 H 100 04/18/19 02:45 20 04/18/19 02:43 120 H 127/68 04/18/19 02:41 121 H 137/74 100 04/18/19 02:40 20 04/18/19 02:39 130 H 167/79 H 04/18/19 02:37 122 H 167/55 H 04/18/19 02:36 122 H 100 04/18/19 02:35 98.4 F 127 H 20 171/71 H 04/18/19 02:33 127 H 134/59 L 04/18/19 02:31 133 H 144/65 H 100 04/18/19 02:30 20 04/18/19 02:27 136 H 155/67 H 04/18/19 02:26 133 H 152/113 H 100 04/18/19 02:22 136 H 177/112 H 04/18/19 02:15 153 H 98 04/18/19 02:10 148 H 95 04/18/19 02:05 141 H 95 04/18/19 02:00 145 H 22 95 04/18/19 01:55 140 H 94 04/18/19 01:53 146 H 138/72 04/18/19 01:51 150 H 85 L 04/18/19 01:50 163 H 93 04/18/19 01:45 144 H 94 04/18/19 01:40 135 H 95 04/18/19 01:37 129 H 138/88 04/18/19 01:35 125 H 141/88 H 96 04/18/19 01:33 122 H 142/94 H 04/18/19 01:31 131 H 154/86 H 04/18/19 01:30 134 H 97 04/18/19 01:29 139 H 153/89 H 04/18/19 01:27 133 H 157/107 H 04/18/19 01:25 140 H 175/119 H 93 04/18/19 01:20 135 H 88 L 04/18/19 01:15 118 H 95 04/18/19 01:13 132 H 84 L 04/18/19 01:10 122 H 153/96 H 96 04/18/19 01:08 112 H 160/94 H 04/18/19 01:05 122 H 96 04/18/19 01:00 116 H 96 04/18/19 00:56 127 H 149/79 H 04/18/19 00:55 132 H 95 04/18/19 00:52 22 04/18/19 00:51 136 H 83 L 04/18/19 00:50 129 H 93 04/18/19 00:45 127 H 93 04/18/19 00:44 129 H 89 L 04/18/19 00:40 116 H 145/85 H 91 04/18/19 00:35 127 H 95 04/18/19 00:31 127 H 85 L 04/18/19 00:30 98.2 F 108 H 20 93 04/18/19 00:27 106 H 203/107 H 04/18/19 00:25 115 H 94 04/18/19 00:21 109 H 200/117 H 04/18/19 00:20 108 H 95 04/18/19 00:15 111 H 167/88 H 94 04/18/19 00:13 109 H 154/87 H 04/18/19 00:11 107 H 158/93 H 04/18/19 00:10 109 H 96 04/18/19 00:09 125 H 158/94 H 04/18/19 00:07 122 H 165/96 H 04/18/19 00:05 118 H 163/93 H 95 04/18/19 00:03 108 H 155/93 H 04/18/19 00:01 110 H 147/105 H 04/18/19 00:00 109 H 20 94 04/17/19 23:55 111 H 94 04/17/19 23:53 103 H 87 L 04/17/19 23:50 103 H 93 04/17/19 23:46 114 H 146/87 H 04/17/19 23:45 111 H 96 04/17/19 23:40 111 H 97 04/17/19 23:35 110 H 96 04/17/19 23:31 116 H 138/88 04/17/19 23:30 118 H 20 97 04/17/19 23:25 110 H 96 04/17/19 23:20 113 H 97 04/17/19 23:17 99 H 153/72 H 04/17/19 23:15 100 H 94 04/17/19 23:10 112 H 95 04/17/19 23:05 98.6 F 103 H 20 94 04/17/19 23:01 98 H 144/86 H 04/17/19 23:00 99 H 94 04/17/19 22:55 108 H 96 04/17/19 22:50 107 H 96 04/17/19 22:46 102 H 139/81 04/17/19 22:45 102 H 95 04/17/19 22:40 102 H 96 04/17/19 22:35 111 H 96 04/17/19 22:31 96 H 141/80 H 04/17/19 22:30 109 H 18 95 04/17/19 22:25 115 H 95 04/17/19 22:20 102 H 96 04/17/19 22:16 107 H 141/103 H 04/17/19 22:15 106 H 97 04/17/19 22:10 98 H 96 04/17/19 22:05 111 H 97 04/17/19 22:02 97 H 147/67 H 04/17/19 22:01 18 04/17/19 22:00 96 H 95 04/17/19 21:55 108 H 95 04/17/19 21:53 99 H 94 04/17/19 21:51 95 H 138/77 04/17/19 21:50 96 H 95 04/17/19 21:47 111 H 94 04/17/19 21:45 94 H 95 04/17/19 21:41 98 H 94 04/17/19 21:40 99 H 95 04/17/19 21:35 101 H 97 04/17/19 21:34 105 H 93 04/17/19 21:31 101 H 129/80 04/17/19 21:30 116 H 18 97 04/17/19 21:25 106 H 96 04/17/19 21:20 119 H 98 04/17/19 21:17 118 H 143/83 H 04/17/19 21:15 114 H 97 04/17/19 21:10 102 H 96 04/17/19 21:05 107 H 95 04/17/19 21:01 100 H 134/68 04/17/19 21:00 98.4 F 104 H 18 95 04/17/19 20:55 113 H 96 04/17/19 20:54 111 H 93 04/17/19 20:50 96 H 96 04/17/19 20:46 105 H 129/75 94 04/17/19 20:45 111 H 95 04/17/19 20:40 105 H 98 04/17/19 20:35 104 H 96 04/17/19 20:31 96 H 142/67 H 04/17/19 20:30 106 H 16 96 04/17/19 20:29 96 H 94 04/17/19 20:25 98 H 93 04/17/19 20:23 96 H 94 04/17/19 20:20 96 H 93 04/17/19 20:18 95 H 94 04/17/19 20:16 98 H 130/70 04/17/19 20:15 93 H 95 04/17/19 20:13 97 H 93 04/17/19 20:10 93 H 93 04/17/19 20:06 96 H 94 04/17/19 20:05 96 H 95 04/17/19 20:01 96 H 128/62 04/17/19 20:00 96 H 18 94 04/17/19 19:59 94 H 94 04/17/19 19:55 95 H 94 04/17/19 19:53 96 H 94 04/17/19 19:50 95 H 93 04/17/19 19:47 92 H 134/62 94 04/17/19 19:45 89 94 04/17/19 19:40 98 H 94 04/17/19 19:39 92 H 94 04/17/19 19:35 98 H 95 04/17/19 19:33 96 H 94 04/17/19 19:31 93 H 134/72 04/17/19 19:30 93 H 18 95 04/17/19 19:25 97 H 97 04/17/19 19:20 98 H 97 04/17/19 19:16 97 H 142/71 H 04/17/19 19:15 101 H 98 04/17/19 19:10 107 H 98 04/17/19 19:05 98.2 F 108 H 98 04/17/19 19:01 100 H 133/81 04/17/19 19:00 101 H 18 98 04/17/19 18:55 106 H 98 04/17/19 18:50 105 H 98 04/17/19 18:46 96 H 128/74 04/17/19 18:45 99 H 97 04/17/19 18:40 98 H 98 04/17/19 18:35 101 H 98 04/17/19 18:32 103 H 133/85 04/17/19 18:30 97 H 20 98 04/17/19 18:25 100 H 97 04/17/19 18:20 94 H 99 04/17/19 18:15 109 H 129/74 99 04/17/19 18:10 94 H 97 04/17/19 18:05 95 H 96 04/17/19 18:01 98 H 120/69 04/17/19 18:00 94 H 18 99 04/17/19 17:55 91 H 96 04/17/19 17:50 104 H 97 19 17:47 94 H 123/70 19 17:45 100 H 97 19 17:40 110 H 98 04/17/19 17:35 101 H 98 04/17/19 17:31 94 H 124/69 04/17/19 17:30 102 H 20 99 04/17/19 17:25 102 H 98 04/17/19 17:20 102 H 97 04/17/19 17:16 115 H 138/81 04/17/19 17:15 114 H 18 99 04/17/19 17:10 99 H 98 04/17/19 17:05 92 H 97 04/17/19 17:00 98.4 F 101 H 18 118/69 96 04/17/19 16:59 95 H 94 04/17/19 16:56 94 H 118/70 04/17/19 16:55 94 H 96 04/17/19 16:51 98 H 118/75 04/17/19 16:50 98 H 95 04/17/19 16:47 97 H 93 04/17/19 16:45 102 H 18 111/67 97 04/17/19 16:40 104 H 96 04/17/19 16:39 96 H 107/61 04/17/19 16:36 96 H 115/63 04/17/19 16:35 95 H 97 04/17/19 16:30 111 H 18 99 04/17/19 16:29 105 H 115/65 04/17/19 16:25 89 97 04/17/19 16:24 96 H 123/69 04/17/19 16:23 94 H 93 04/17/19 16:20 100 H 119/64 96 04/17/19 16:15 104 H 18 124/67 97 04/17/19 16:10 99 H 97 04/17/19 16:09 96 H 115/55 L 04/17/19 16:05 114 H 96 04/17/19 16:04 93 H 117/59 L 04/17/19 16:00 104 H 20 98 04/17/19 15:59 96 H 118/55 L 04/17/19 15:57 106 H 121/58 L 04/17/19 15:55 107 H 117/56 L 98 04/17/19 15:53 97 H 123/58 L 04/17/19 15:51 94 H 124/59 L 04/17/19 15:50 97 H 98 04/17/19 15:49 122/65 04/17/19 15:47 90 120/59 L 04/17/19 15:45 95 H 16 120/72 98 04/17/19 15:40 114 H 99 04/17/19 15:35 105 H 99 04/17/19 15:30 97 H 98 04/17/19 15:27 100 H 140/89 04/17/19 15:25 95 H 98 04/17/19 15:20 105 H 100 04/17/19 15:15 95 H 98 04/17/19 15:10 95 H 98 04/17/19 15:05 94 H 95 04/17/19 15:00 98.2 F 16 04/17/19 14:26 106 H 139/87 04/17/19 13:36 98.1 F 104 H 20 139/83 04/17/19 12:51 106 H 121/75 04/17/19 12:22 112 H 171/93 H 04/17/19 10:48 98.1 F 112 H 20 142/90 H 04/17/19 10:47 106 H 142/98 H 04/17/19 09:49 104 H 142/88 H 04/17/19 08:56 98.4 F 118 H 20 135/82 04/17/19 08:43 98.4 F 118 H 20 135/82 Pain Intensity Bilateral Abdomen: Pain Intensity: 5 Right Leg: Pain Intensity: 5 Transfer of Care Handoff Completed per policy Notes Mental Status: alert / awake / arousable and participated in evaluation Nausea / Vomiting: adequately controlled Pain: adequately controlled Airway Patency, RR, SpO2: stable & adequate BP & HR: stable & adequate Hydration State: stable & adequate Neuraxial Anesthesia: was administered and sensory block is resolving Anesthetic Complications: no major complications apparent and Pt Satisfied with anesthetic care
[2019-04-18] MEDS: SERTRALINE HCL 50 MG TABLET PO SCH (08:36)
[2019-04-18] MEDS: DOCUSATE SODIUM 100 MG CAP PO SCH (08:45)
[2019-04-18] MEDS: SIMETHICONE 80 MG CHEW PO SCH ×3 (08:47→16:58)
[2019-04-18] MEDS: PRENATAL VITAMIN 1 TAB PO SCH (08:47)
[2019-04-18] MEDS: MEPERIDINE HCL 25 MG/ML CARP IV PRN ×2 (08:53→21:30)
[2019-04-18] MEDS: OXYTOCIN 30 UNITS in LACTATED RINGER'S 1,000 ML IV SCH ×2 (09:12→16:58)
[2019-04-18] MEDS: KETOROLAC 30 MG/ML VIAL IV PRN ×2 (10:43→16:58)
[2019-04-18] MEDS ORDERED: NON-FORMULARY MEDICATION (Pnv Cmb#95-Ferrous Fumarate-Fa [Prenatal] 1 TAB) PO SCH (11:30)
[2019-04-18] MEDS ORDERED: ZOLPIDEM TARTRATE 5 MG TAB PO PRN (23:36)
[2019-04-19] MEDS: KETOROLAC 30 MG/ML VIAL IV PRN (00:26)
[2019-04-19] MEDS ORDERED: DiphenhydrAMINE HCL 50 MG/ML VIAL IV PRN (00:51)
[2019-04-19] MEDS ORDERED: KETOROLAC 30 MG/ML VIAL IV PRN (00:51)
[2019-04-19] MEDS ORDERED: OXYCODONE/ACETAMINOPHEN 5mg/325mg TAB PO PRN (00:51)
[2019-04-19] MEDS: SIMETHICONE 80 MG CHEW PO SCH ×5 (01:18→21:09)
[2019-04-19] MEDS: IBUPROFEN 600 MG TAB PO PRN ×5 (03:51→21:09)
[2019-04-19] MEDS: DOCUSATE SODIUM 100 MG CAP PO SCH ×3 (06:35→21:09)
[2019-04-19 06:40] LABS: Basophils # (auto) 0.02 K/uL (0-0.2); Basophils % (auto) 0.2 %; Eosinophils % (auto) 0.8 %; Hemoglobin 8.7 g/dL (12.0-16.0); Immature Granulocytes # (auto) 0.05 K/uL (0.00-0.02); Immature Granulocytes % (auto) 0.4 %; Lymphocytes # (auto) 1.87 K/uL (1.2-3.4); Lymphocytes % (auto) 14.3 %; Mean Corpuscular Hemoglobin 27.9 pg (25-34); Mean Corpuscular Hgb Conc 32.2 g/dL (32-36); Mean Corpuscular Volume 86.5 fL (80-100); Mean Platelet Volume 9.6 fL (7.4-10.4); Monocytes # (auto) 1.02 K/uL (0.11-0.59); Monocytes % (auto) 7.8 %; Neutrophils # (auto) 10.05 K/uL (1.4-6.5); Neutrophils % (auto) 76.5 %; Platelet Count 165 K/uL (130-400); RDW Coefficient of Variation 15.6 % (11.5-14.5); RDW Standard Deviation 48.7 fL (36.4-46.3); Red Blood Count 3.12 M/uL (4.2-5.4); White Blood Count 13.11 K/uL (4.8-10.8)
--- NOTE | 2019-04-19 07:43 | Obstetrical Progress Note ---
Date of Service April 19, 2019 Assessment & Plan (1) H/O section: doing ok postop, adv diet, ambulate, po pain meds (2) Depression with anxiety: on zoloft, needs psych consult. needs to have outpt care established Subjective Ambulation: ambulating normally Voiding: no voiding problems Passing Gas:: Yes Diet Tolerance:: regular diet Lochia:: Small Feeding Type:: bottle feeding denies pain issues. had anxiety issue overnight she says related to "all that has gone on" takes zoloft routinely and ordered while here. she was seeing someone at the [facility] in [place] but mentions it is closing and concerned about a new provider. no si or hi. she says has never had that. Physical Exam Constitutional WD/WN, vitals as above Respiratory normal respiratory effort, lungs clear to auscultation Cardiovascular Rate/Rhythm: regular rate and regular rhythm Gastrointestinal (Abdomen) Inspection/Auscultation: abdomen normal to inspection and + abdominal surgical incision (c/d/i with steris) Percussion/Palpation: abdomen soft; abdomen nontender Fundus firm 1cm down Musculoskeletal nt calves no edema Neurologic grossly normal Psychiatric Orientation: alert Eye Contact: + fair eye contact (sleepy) Speech: normal rate/rhythm/volume of speech Affect: euthymic affect Results & Data Vital Signs (Past 12 Hours) Vital Signs Temp Pulse Resp BP Pulse Ox 04/19/19 00:40 97.3 F L 114 H 16 121/80 100 04/19/19 00:00 14 96 04/18/19 23:00 16 18 L 04/18/19 22:00 16 98 04/18/19 21:00 16 98 04/18/19 20:00 98.1 F 111 H 16 116/74 97
[2019-04-19] MEDS: PRENATAL VITAMIN 1 TAB PO SCH (08:14)
[2019-04-19] MEDS: SERTRALINE HCL 50 MG TABLET PO SCH ×2 (09:05→21:09)
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
[2019-04-19] MEDS: ACETAMINOPHEN 500 MG TAB PO PRN (18:51)
[2019-04-19] MEDS ORDERED: bisacodyL 5 MG TABEC PO SCH (20:00)
[2019-04-20 06:40] LABS: Hematocrit (blood only) 27.1 % (37-47); Hemoglobin 8.6 g/dL (12.0-16.0)
[2019-04-20] MEDS ORDERED: bisacodyL 10 MG SUPP PR PRN (06:42)
--- NOTE | 2019-04-20 07:30 | Obstetrical Progress Note ---
Date of Service April 20, 2019 Assessment & Plan (1) Encounter for care and examination after delivery: with GDM, GBS+, hx of anxiety and depression who is POD2 after LTCS. 1) POD2 s/p LTCS - incision remains dry, intact, clean - has been able to tolerate an oral diet - continue ambulation around room and in hallway as tolerated 2) Anxiety and Depression - psychiatry consulted for recommendations on medication management and access to resources - Sertraline 50 BID and Vistaril 25 Q4 PRN per recommendations - Pt has appointment with Марина Quesada on 05/02/19 at 1300 with [facility] for therapy intake - [facility] 3) GDM - sugars within range. Fasting 115 at 4:45 am. (2) Depression with anxiety: (3) H/O section: (4) Carrier of group B Streptococcus: (5) Obesity: Supervising Physician Co-Signing Physician Notes Resident Physician Supervision Note: I was present with Dr. Mckeon during the history and exam. I discussed the case with the resident and agree with the findings and plan as documented in the note. Any exceptions or clarifications are listed here: The patient adamantly desires d/c. Feels that the hospital environment is aggravating her anxiety. Pt has help in place at home. Seen by psych and aftercare plan established. D/C instructions and Rx sent, f/u for pp check. Documented By: Pollo Knight Jr, MD, FACOG Subjective Denies any pain this morning. Remains anxious when she starts thinking about staying in the hospital. Attests that being in the unfamiliar hospital environment is making her baseline anxiety and depression much worse and she feels uncomfortable getting help from nurses to shower which also is making the anxiety worse. She strongly wants to go home and believes she will be able to handle herself better at home with help from her mother in law. She was seen by psychiatry yesterday and does agree that the vistaril they prescribed helps her acute anxiety attacks. When discussing the possibility of discharge later today vs. tomorrow she and her became noticably agitated and she said she would likely "flip out" on the nurses if she had to stay one more day. Review of Systems Constitutional: + fatigue; no fever and no chills Respiratory: no cough and no dyspnea Cardiovascular: no chest pain, no syncope, no edema and no calf pain Gastrointestinal: + cramping; no abdominal pain, no nausea, no vomiting, no constipation and no diarrhea/loose stools Genitourinary: no dysuria and no difficulty urinating Neurologic: no headache(s) Physical Exam Constitutional: well developed and well nourished Respiratory: normal respiratory effort; no respiratory distress, no labored breathing and no cough Auscultation: no crackles, no rales, no rhonchi and no wheezes Cardiovascular: Rate/Rhythm: regular rate and regular rhythm Heart Sounds: no gallop, no murmur and no cardiac rub Extremities: no pedal edema Gastrointestinal (Abdomen): Inspection/Auscultation: + abdomen distended and normal bowel sounds Percussion/Palpation: abdomen soft; no guarding Musculoskeletal: no tenderness to palpation of calves bilaterally Genitourinary: Uterus small and firm, palpable in midline at level of umbilicus, some tenderness to palpation. c/s incision clean, dry, intact. Results & Data Vital Signs (Past 12 Hours) Vital Signs Temp Pulse Pulse Resp BP Pulse Ox 04/19/19 23:30 37 C 120 H 20 105/70 98 04/19/19 20:05 36.7 C 137 H 18 117/74 Resident Activity Tracking Resident Involvement: Resident Care Provided Care Provided: Adult Hospital Medicine and OB Delivery
[2019-04-20] MEDS: PRENATAL VITAMIN 1 TAB PO SCH (08:30)
[2019-04-20] MEDS: SERTRALINE HCL 50 MG TABLET PO SCH (08:30)
[2019-04-20] MEDS: DOCUSATE SODIUM 100 MG CAP PO SCH (08:30)
[2019-04-20] MEDS: SIMETHICONE 80 MG CHEW PO SCH ×2 (08:30→12:34)
[2019-04-20] MEDS: IBUPROFEN 600 MG TAB PO PRN (12:33)
--- NOTE | 2019-04-27 10:45 | Discharge Summary ---
Date of Service April 27, 2019 Admission Exam (Per Admitting) Constitutional WD/WN, vitals as above Respiratory normal respiratory effort, lungs clear to auscultation no respiratory distress Cardiovascular Rate/Rhythm: regular rate and regular rhythm Gastrointestinal (Abdomen) Inspection/Auscultation: abdomen normal to inspection Percussion/Palpation: abdomen soft; abdomen nontender Skin no rashes, warm and dry Psychiatric A+Ox3, euthymic affect Discharge Data Consultations 04/18/19 05:43 Consult Anesthesiology Stat 04/19/19 08:43 Consult Psychiatry Routine Procedures Performed Operation Date: 04/18/19 05:40 Actual Procedures p Section in LD, live female at 0629.(Bilateral) - Jolene Magana, Hospital Course (1) Encounter for care and examination after delivery: (2) Depression with anxiety: on zoloft, needs psych consult. needs to have outpt care established (3) H/O section: doing ok postop, adv diet, ambulate, po pain meds (4) Carrier of group B Streptococcus: (5) Obesity: (6) Supervision of normal first : Patient was admitted in labor, resulted in primary low transverse section. Please see operative report for details. Routine postop recovery, discharged to home POD#2. Psychiatry consulted for anxiety during , please see psych note for details. Followup in office in 6w. Supervising Physician Co-Signing Physician Notes Resident Physician Supervision Note: I was present with Dr. Mckeon during the history and exam. I discussed the case with the resident and agree with the findings and plan as documented in the note. Any exceptions or clarifications are listed here: The patient adamantly desires d/c. Feels that the hospital environment is aggravating her anxiety. Pt has help in place at home. Seen by psych and aftercare plan established. D/C instructions and Rx sent, f/u for pp check. Documented By: Pollo Knight Jr, MD, FACOG
== END 2019-04-20 16:05 | disposition home health service (06) | DRG 788 ==
LOC: OPB 08:32 → 4S1 08:34 → 4S2 04-18 10:34